=== PATIENT | male | born 1960 | race Caucasian/White ===

== ENCOUNTER 2017-03-03 08:35 | Emergency (ER) | payer MEDICAID, OTHER ==
[~2017-03-03] VITALS: Ht 182.9 cm; Wt 65.5 kg
[~2017-03-03 08:35] MED LIST: ALBU8I INH; ALBUS PO; BACT800T5 PO; HYDR-3129 PO; [UNRECOGNIZED DRUG - CODE] PO
[2017-03-03 08:41] VITALS: BP 115/78; PULSE 94; RESP 20; TEMP 97.7; O2SAT 97
[2017-03-03 08:52] VITALS: BP 104/72; PULSE 94; RESP 22; TEMP 97.8; O2SAT 96
[2017-03-03 09:00] VITALS: RESP 22; O2SAT 96
[2017-03-03] MEDS ORDERED: HYDR-3366 PO (09:01)
[2017-03-03] MEDS ORDERED: VENTAER INH (09:01)
[2017-03-03] MEDS ORDERED: ALBU1AER5 INH (09:01)
[2017-03-03] MEDS ORDERED: MORP1CAP PO (09:01)
--- NOTE | 2017-03-03 09:06 | PD ---
HPI Chief Complaint: Respiratory Symptoms Time Seen by Provider: 09:05 Travel History International Travel<30 days: No Contact w/Intl Traveler<30days: No Traveled to known affect area: No History of Present Illness HPI 56-year-old male came to the emergency room with history of progressive shortness of breath over past 10 days. He is also complaining of sore throat and runny nose. His is here who says that everybody in the family had similar symptoms prior to patient getting sick. He has not had any fever or chills. Complains of chest tightness but no significant chest pain per se. He says 2 weeks ago his both ankles have swollen out of nowhere. Patient is a smoker and currently smokes 5 cigarettes a day. Does not have any known heart condition. He does have history of COPD and emphysema. He has been taking his nebulizer and inhalers at home. His last inhaler was in the car on his way to the emergency room. Vital signs in triage were within acceptable limits. [facility] Past Medical History Narrative Medical List of his past medical, surgical, social and family history was reviewed from the nursing note. Hx Anticoagulant Therapy: No Asthma: Yes Autoimmune Disease: No Blood Disorders: No Anxiety: Yes Depression: Yes Cancer: No Cardiovascular Problems: No Chemotherapy: No COPD: Yes Cerebrovascular Accident: No Diabetes: No Diminished Hearing: Yes (BILATERAL) Endocrine: No Glaucoma: No Genitourinary: No Immune Disorder: No Musculoskeletal: No Neurologic: No Psychiatric: Yes Reproductive: No Respiratory: Yes (COPD) Immunizations Current: Yes Radiation Therapy: No Seizures: Yes Thyroid Disease: No Tetanus Vaccination: Unknown Influenza Vaccination: No Past Surgical History Abdominal Surgery: No AICD: No Arteriovenous Shunt: No Cardiac Surgery: No Ear Surgery: No Endocrine Surgery: No Eye Surgery: No Genitourinary Surgery: No Gynecologic Surgery: No Hysterectomy: No Insulin Pump: No Joint Replacement: No Oral Surgery: No Pacemaker: No Thoracic Surgery: No Tonsillectomy: Yes Other Surgery: Yes (back surgery C4,5,6,7) Social History Alcohol Use: Yes (6 pack daily) Tobacco Use: Yes (1 ppd) 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 Reported Meds & Prescriptions Reported Meds & Active Scripts Active Prednisone 20 Mg Tab 20 Mg PO BID 5 Days Zithromax Z-Zack (Azithromycin) 250 Mg Dspk 250 Mg PO DIRECTED 500 MG (2 tabs) day 1, then 1 tab days 2-5. Reported Proair Respiclick Inh (Albuterol Sulfate) 90 Mcg/Act Aerp 2 Puff INH Q6H PRN Ventolin Hfa 18 GM Inh (Albuterol Sulfate) 90 Mcg/Act Aer 2 Puff INH Q4-6H PRN [place] (Morphine Sulfate) 30 Mg Caper 30 Mg PO BID [place] (Hydrocodone-Acetaminophen) 10-325 Mg Tab 1 Tab PO Q6H PRN Narrative Medication List of his own medications reviewed from the nursing note. Review of Systems Except as stated in HPI: all other systems reviewed are Neg Physical Exam Narrative GENERAL: Awake, alert, moderate distress SKIN: Focused skin assessment warm/dry. HEAD: Atraumatic. Normocephalic. EYES: Pupils equal and round. No scleral icterus. No injection or drainage. ENT: No nasal bleeding or discharge. Mucous membranes pink and moist. NECK: Trachea midline. No JVD. CARDIOVASCULAR: Regular rate and rhythm. No murmur appreciated. RESPIRATORY: No accessory muscle use. Decreased air entry bilaterally with end expiratory wheeze GASTROINTESTINAL: Abdomen soft, non-tender, nondistended. Hepatic and splenic margins not palpable. MUSCULOSKELETAL: No obvious deformities. No clubbing. No cyanosis. No edema. NEUROLOGICAL: Awake and alert. No obvious cranial nerve deficits. Motor grossly within normal limits. Normal speech. PSYCHIATRIC: Appropriate mood and affect; insight and judgment normal. Data Data Last Documented VS Orders Complete Blood Count With Diff (03/03/17 09:09) Basic Metabolic Panel (Bmp) (03/03/17 09:09) B-Type Natriuretic Peptide (03/03/17 09:09) Magnesium (Mg) (03/03/17 09:09) Troponin I (03/03/17 09:09) Iv Access Insert/Monitor (03/03/17 09:09) Electrocardiogram (03/03/17 09:09) Ecg Monitoring (03/03/17 09:09) Oximetry (03/03/17 09:09) Oxygen Administration (03/03/17 09:09) Chest, Single Ap (03/03/17 09:09) Sodium Chloride 0.9% Flush (Ns Flush) (03/03/17 09:15) Methylprednisolone So Succ Inj (Solumedr (03/03/17 09:15) Albuterol-Ipratropium Neb (Duoneb Neb) (03/03/17 09:15) Albuterol Neb (Albuterol Neb) (03/03/17 10:15) Labs MDM Medical Decision Making Medical Screen Exam Complete: Yes Emergency Medical Condition: Yes Medical Record Reviewed: Yes Interpretation(s) Twelve-lead EKG was reviewed by me. Normal sinus rhythm, normal axis, poor R- wave progression. Heart rate of 84 bpm. Differential Diagnosis Acute COPD exacerbation, pneumonia, CHF Narrative Course 9:19 AM I've ordered for 3 duo nebs and IV Solu-Medrol. Awaiting for chest x- ray and blood work. 10:07 AM I just reassessed the patient. The air entry is much better. He does have some end expiratory wheeze still. I've ordered 2 more albuterol nebulizers. I educated the patient regarding smoking cessation. The chest x- ray was read as a nodule in the left lung apex which was seen in 2012. I told the patient and his and they said they were aware of the nodule but nobody had asked them to follow up with primary care regarding it. I have emphasized on the fact that given that he is a smoker, this nodule should be seen by hydrographic engineer and assessed. I've asked him to follow up with his primary care and asked for referral to a hydrographic engineer. Patient has some elevated white blood cell count and I will discharge him home on Z-Zack and prednisone prescription. He will be discharged after the albuterol nebulizers. Procedures EKG Prior to Arrival: No Diagnosis Primary Impression: Acute exacerbation of chronic obstructive pulmonary disease (COPD) Additional Impressions: Needs smoking cessation education Lung nodule < 6cm on CT Bronchitis Referrals: Primary Care Physician 2 days Additional Instructions: Please return to the ER if the condition worsens or any other new concerns. Please follow-up with your primary care in couple days. He needs to quit smoking in order to get better. Use your albuterol inhaler/nebulizer every 4 hours till symptoms improve. Take the medications as per the prescription direction. Please discuss with your primary care regarding the lung nodule that was mentioned to you as seen on the chest x-ray. Your primary care should give your referral to a hydrographic engineer for a possible biopsy. Med/Other Pt SpecificInfo: Prescription(s) given Scripts Prednisone 20 Mg Tab20 Mg PO BID 5 Days Ref 0 Prov:Wilber Gonsalves MD 03/03/17 Azithromycin (Zithromax Z-Zack)250 Mg [id number] Mg PO DIRECTED #1 DSPK Ref 0 500 MG (2 tabs) day 1, then 1 tab days 2-5. Prov:Wilber Gonsalves MD 03/03/17 Disposition: DISCHARGE HOME Condition: Stable Wilber Gonsalves MD Mar 03, 2017 09:06 Sodium Level 136 MEQ/L Potassium Level 3.5 MEQ/L Chloride Level 98 MEQ/L Carbon Dioxide Level 27.4 MEQ/L Anion Gap 11 MEQ/L Blood Urea Nitrogen 4 MG/DL Creatinine 0.65 MG/DL Estimat Glomerular Filtration 127 ML/MIN Rate Random Glucose 107 MG/DL Calcium Level 8.9 MG/DL Magnesium Level 2.2 MG/DL Troponin I LESS THAN 0.02 NG/ML B-Type Natriuretic Peptide 24 PG/ML MDM Medical Decision Making Medical Screen Exam Complete: Yes Emergency Medical Condition: Yes Medical Record Reviewed: Yes Interpretation(s) Twelve-lead EKG was reviewed by me. Normal sinus rhythm, normal axis, poor R- wave progression. Heart rate of 84 bpm. Differential Diagnosis Acute COPD exacerbation, pneumonia, CHF Narrative Course 9:19 AM I've ordered for 3 duo nebs and IV Solu-Medrol. Awaiting for chest x- ray and blood work. 10:07 AM I just reassessed the patient. The air entry is much better. He does have some end expiratory wheeze still. I've ordered 2 more albuterol nebulizers. I educated the patient regarding smoking cessation. The chest x- ray was read as a nodule in the left lung apex which was seen in 2012. I told the patient and his and they said they were aware of the nodule but nobody had asked them to follow up with primary care regarding it. I have emphasized on the fact that given the fact that he is a smoker at this nodule should be seen by hydrographic engineer and assessed. I've asked him to follow up with his primary care and asked for referral to a hydrographic engineer. Patient has some elevated white blood cell count and I will discharge him home on Z-Zack and prednisone prescription. He will be discharged after the albuterol nebulizers. Procedures EKG Prior to Arrival: No Diagnosis Primary Impression: Acute exacerbation of chronic obstructive pulmonary disease (COPD) Additional Impressions: Needs smoking cessation education Lung nodule < 6cm on CT Bronchitis Referrals: Primary Care Physician 2 days Additional Instructions: Please return to the ER if the condition worsens or any other new concerns. Please follow-up with your primary care in couple days. He needs to quit smoking in order to get better. Use your albuterol inhaler/nebulizer every 4 hours till symptoms improve. Take the medications as per the prescription direction. Please discuss with your primary care regarding the lung nodule that was mentioned to you as seen on the chest x-ray. Your primary care should give your referral to a hydrographic engineer for a possible biopsy. Med/Other Pt SpecificInfo: Prescription(s) given Scripts Prednisone 20 Mg Tab20 Mg PO BID 5 Days Ref 0 Prov:Wilber Gonsalves MD 03/03/17 Azithromycin (Zithromax Z-Zack)250 Mg [id number] Mg PO DIRECTED #1 DSPK Ref 0 500 MG (2 tabs) day 1, then 1 tab days 2-5. Prov:Wilber Gonsalves MD 03/03/17 Disposition: 01 DISCHARGE HOME Condition: Stable Wilber Gonsalves MD Mar 03, 2017 09:06
[2017-03-03] MEDS ORDERED: SODIUM CHLORIDE 0.9% FLUSH 10 ML FLUSH IVF PRN (09:15)
[2017-03-03] MEDS ORDERED: methylPREDNISolone SOD SUCC 125 MG/2 ML VIAL IVP ONE (09:15)
[2017-03-03] MEDS: RESP: ALBUTEROL 2.5 MG/IPRATROPIUM 0.5 MG NEB (SCH) INH ×2 (09:19→09:21)
[2017-03-03 09:30] LABS: AUTOMATED NEUTROPHIL # 12.1 TH/MM3 (1.8-7.7); BASOPHIL # 0.1 TH/MM3 (0-0.2); BASOPHIL % 0.8 % (0.0-2.0); EOSINOPHIL # 0.1 TH/MM3 (0-0.4); EOSINOPHIL % 0.8 % (0.0-4.0); HEMATOCRIT 48.9 % (39.0-51.0); LYMPH % 9.2 % (9.0-44.0); LYMPHOCYTE # 1.4 TH/MM3 (1.0-4.8); MEAN CELL VOLUME 96.9 FL (80.0-100.0); MEAN CORPUSCULAR HEMOGLOBIN 32.9 PG (27.0-34.0); MONO % 7.7 % (0.0-8.0); NEUT % 81.5 % (16.0-70.0); PLATELET COUNT 475 TH/MM3 (150-450); RED BLOOD COUNT 5.05 MIL/MM3 (4.50-5.90); RED CELL DISTRIBUTION WIDTH 12.4 % (11.6-17.2); WHITE BLOOD COUNT 14.8 TH/MM3 (4.0-11.0)
[2017-03-03 09:31] LABS: HEMO FLAGS DIFF FINAL
--- NOTE | 2017-03-03 09:33 | RADHPO ---
EXAM DATE/TIME: 03/03/2017 09:19 [facility] COMPARISON: CHEST PA & LAT, January 20, 2015, 12:58. CHEST PA & LAT, November 19, 2013, 17:40. CHEST PA & LAT, April 07, 2013, 18:08. CHEST SINGLE AP, July 31, 2015, 0:34. INDICATIONS : Short of breath, chest tightness, sore throat. MEDICAL HISTORY : Chronic obstructive pulmonary disease. Emphysema. Asthma. Tuberculosis. SURGICAL HISTORY : Tonsillectomy. Fusion, cervical. ENCOUNTER: Initial ACUITY: 2 weeks PAIN SCORE: 0/10 LOCATION: chest FINDINGS: There is an oval mass like nodule in the left apex measuring 10 x 5 mm which is stable in size when c ompared to prior chest x-rays dating back to March 2013. There is also mild linear radiations extendin g from the left hilum to the nodule, also stable. Right lung is clear. Both hemidiaphragms well del ineated. The heart is normal in size. Anterior plate in the lower cervical spine. CONCLUSION: No acute findings. Oval masslike opacity in the left apex has been present on prior chest x-rays landy ing back to 2012. Please confirm through review of the past medical record that this has been fully worked up and out malignancy has been excluded. Saroj Hernandez MD on March 03, 2017 at 9:27 Board Certified Radiologist. This report was verified electronically.
[2017-03-03 09:49] LABS: BICARBONATE 27.4 MEQ/L (21.0-32.0); MAGNESIUM 2.2 MG/DL (1.5-2.5)
[2017-03-03 09:53] LABS: GLOMERULAR FILTRATION RATE 127 ML/MIN (>89)
[2017-03-03 09:54] LABS: ANION GAP 11 MEQ/L (5-15); CHLORIDE 98 MEQ/L (98-107); POTASSIUM 3.5 MEQ/L (3.5-5.1); SODIUM (NA) 136 MEQ/L (136-145)
[2017-03-03 10:03] LABS: BLOOD UREA NITROGEN 4 MG/DL (7-18)
[2017-03-03] MEDS ORDERED: PRED20 PO (10:10)
[2017-03-03] MEDS ORDERED: ZITHTAB PO (10:10)
[2017-03-03] MEDS: RESP: ALBUTEROL 2.5 MG/3 ML NEB (SCH) INH (10:11)
[2017-03-03 11:00] VITALS: BP 106/75
--- NOTE | 2017-03-04 13:53 | EKG ---
Date Performed: 03/03/2017 Time Performed: 09:11:08 PTAGE: 56 years EKG: Sinus rhythm Possible right atrial abnormality Poor R wave progression - probable normal variant Borderline ECG C ompared to prior tracing no significant change PREVIOUS TRACING : 07/31/2015 00.31 DOCTOR: Silverio Parikh Interpretating Date/Time 03/04/2017 13:50:49
== END 2017-03-03 11:05 | disposition home or self-care (01) ==
LOC: PHED 08:35
DX: J44.1 Chronic obstructive pulmonary disease with (acute) exacerbation (principal); R91.1 Solitary pulmonary nodule; J40 Bronchitis, not specified as acute or chronic; R07.0 Pain in throat; R94.31 Abnormal electrocardiogram [ECG] [EKG]; H91.90 Unspecified hearing loss, unspecified ear; Z72.0 Tobacco use; Z87.09 Personal history of other diseases of the respiratory system; Z86.59 Personal history of other mental and behavioral disorders; Z86.69 Personal history of other diseases of the nervous system and sense organs
CPT/HCPCS: 71010; 80048; 83735; 83880; 84484; 85025; 93005; 94640; 94664; 96374; 99284; J2930; J7613